=== PATIENT | female | born 1970 | race Caucasian/White ===

== ENCOUNTER 2020-11-20 18:28 | Emergency (ER) | payer OTHER ==
[~2020-11-20 18:28] MED LIST: AMBIEN10 MG PO; BENADRYL 25MG C25 MG PO; FIORINAL 50-321 EACH PO; IMITREX100 MG PO; NEURONTIN 300300 MG PO; NORVASC 5 MG TAB5 MG PO; NORVASC2.5 MG PO; PERCOCET 5/325 T1 EA PO; PROPRANOLOL HCL10 MG PO; PROVENTIL HFA6.7 GM INH; TOPAMAX25 MG PO; TOPAMAX50 MG PO; ZOFRAN4 MG PO; [UNRECOGNIZED DRUG - REMARK]
[2020-11-20 19:56] LABS: HEMOGLOBIN 15.6 gm/dl (12.3-15.3); RED BLOOD COUNT 5.21 M/UL (4.00-5.10); WHITE BLOOD COUNT 7.5 K/UL (4.5-11.0)
[2020-11-20 20:21] LABS: BUN/CREATININE RATIO 33 (0-10)
[2020-11-20] MEDS ORDERED: LODINE CAP 300300 MG PO (23:22)
[2020-11-20] MEDS ORDERED: ZOFRAN ODT 4 MG4 MG PO (23:22)
[2020-11-20] MEDS ORDERED: BENTYL 20MG TAB20 MG PO (23:22)
== END 2020-11-20 23:26 | disposition home or self-care (01) ==
LOC: ER1 18:28
PROVIDERS: Physician Assistant
DX: R10.11 Right upper quadrant pain (principal); R10.12 Left upper quadrant pain; R11.2 Nausea with vomiting, unspecified; R19.7 Diarrhea, unspecified; I10 Essential (primary) hypertension; F17.210 Nicotine dependence, cigarettes, uncomplicated; Z90.49 Acquired absence of other specified parts of digestive tract; Z88.6 Allergy status to analgesic agent; Z90.710 Acquired absence of both cervix and uterus; Z79.899 Other long term (current) drug therapy; Z88.2 Allergy status to sulfonamides; Z88.5 Allergy status to narcotic agent
CPT/HCPCS: 80053; 81001; 82150; 82550; 82553; 83690; 83874; 84484; 85025; 93005; 96374; 96375; 99284; J1885; J2270; J2405; J7030; Q9967

== ENCOUNTER → 2021-08-23 | Day surgery (SDC) | payer OTHER ==
[~2021-08-23] VITALS: Ht 157.5 cm; Wt 74.8 kg
[~2021-08-23] MED LIST changes: +BENTYL 20MG TAB20 MG PO; +EFFEXOR XR 75 M75 MG PO; +IBUPROFEN800 MG PO; +LODINE CAP 300300 MG PO; +WELLBUTRIN 75 M75 MG PO; +ZOFRAN ODT 4 MG4 MG PO
[2021-08-23 08:11] LABS: BUN/CREATININE RATIO 27 (0-10)
== END | disposition home or self-care (01) ==
LOC: OR 06:39
PROVIDERS: Orthopaedic Surgery
DX: S52.552A Other extraarticular fracture of lower end of left radius, initial encounter for closed fracture (principal); G89.18 Other acute postprocedural pain; I10 Essential (primary) hypertension; J44.9 Chronic obstructive pulmonary disease, unspecified; F41.9 Anxiety disorder, unspecified; F32.A Depression, unspecified; F17.210 Nicotine dependence, cigarettes, uncomplicated; Z88.5 Allergy status to narcotic agent; Z88.2 Allergy status to sulfonamides; Z79.899 Other long term (current) drug therapy; Z20.822 Contact with and (suspected) exposure to COVID-19; W18.09XA Striking against other object with subsequent fall, initial encounter
CPT/HCPCS: 36415; 73110; 76000; 80048; J0690; J1100; J2250; J2704; J2795; J3010; J7120